=== PATIENT | female | born 1960 | race African-American/Black ===

== ENCOUNTER 2022-01-26 04:09 | Day surgery (SDC) | payer BC ==
[2022-01-24 18:16] VITALS: BMI 38.9
[2022-01-26] MEDS ORDERED: METHYLENE BLUE 50 MG/10 ML AMPUL ONE (10:27)
[2022-01-26] MEDS ORDERED: BUPIVACAINE HCL/PF 0.25% (2.5MG/ML) 10 ML VIAL ONE (10:28)
[2022-01-26] MEDS ORDERED: MIDAZOLAM HCL 2 MG/2 ML SINGLE DOSE VIAL ONE ×2 (10:49)
[2022-01-26] MEDS ORDERED: PROPOFOL 20 ML ONE ×3 (10:49→13:37)
[2022-01-26] MEDS ORDERED: ROCURONIUM BROMIDE 50 MG/5 ML SYRINGE ONE ×2 (10:49→11:58)
[2022-01-26] MEDS ORDERED: HYDROmorphone HCl 2 MG/ML VIAL ONE (11:26)
[2022-01-26] MEDS ORDERED: ceFAZolin SODIUM 1 GM VIAL IVPB ONE (11:29)
[2022-01-26] MEDS ORDERED: GLYCOPYRROLATE 0.2 MG/1 ML VIAL ONE (13:41)
[2022-01-26] MEDS ORDERED: NEOSTIGMINE METHYLSULFATE 0.5 MG/1 ML - 10 ML MDV ONE (13:41)
[2022-01-26] MEDS ORDERED: BUPIVACAINE HCL/PF 0.25% (2.5MG/ML) 10 ML VIAL IJ ONE (15:02)
[2022-01-26] MEDS ORDERED: oxyCODONE HCL 5 MG TABLET PO PRN (15:23)
[2022-01-26] MEDS ORDERED: ONDANSETRON 4 MG/2 ML VIAL IVPUSH PRN (15:23)
[2022-01-26] MEDS ORDERED: ACETAMINOPHEN 1000 MG/100 ML BAG IVPB ONE (15:24)
[2022-01-26] MEDS ORDERED: LACTATED RINGERS SOLUTION 1,000 ML IV SCH (15:30)
[2022-01-26] MEDS ORDERED: ACETAMINOPHEN INJECTION 100 ML IVPB ONE (15:48)
[2022-01-26] MEDS ORDERED: FENTANYL CITRATE/PF 50 MCG/ML VIAL ONE (16:31)
[2022-01-26] MEDS ORDERED: ONDANSETRON 4 MG/2 ML VIAL ONE (18:08)
[2022-01-26 18:16] VITALS: TEMP 96.9
[2022-01-26 18:59] VITALS: BP 118/57; PULSE 72
== END 2022-01-26 19:15 | disposition home or self-care (01) ==
LOC: JASU-SURG 04:09 → JASUSAT 04:09
PROVIDERS: ATTEND Plastic Surgery
PROC: 0HBV0ZZ Excision of Bilateral Breast, Open Approach (ICD-10-PCS; principal; 2022-01-26 12:00)
DX: N62 Hypertrophy of breast (principal)
CPT/HCPCS: 86850; 86900; 86901; 88305-TC; 94760; Q9968